=== PATIENT | male | born 1980 | race Caucasian/White ===

== ENCOUNTER 2019-08-30 01:42 | Emergency (ER) | payer OTHER ==
[2019-08-30 02:26] LABS: ABSOLUTE BASOPHILS # (AUTO) 0.1 10^3/uL (0.0-0.2); ABSOLUTE EOSINOPHILS # (AUTO) 0.1 10^3/uL (0.0-0.6); ABSOLUTE LYMPHOCYTES (AUTO) 1.8 10^3/uL (0.5-4.7); ABSOLUTE MONOCYTES (AUTO) 0.9 10^3/uL (0.1-1.4); ABSOLUTE NEUT (AUTO) 9.3 10^3/uL (1.7-8.2); BASOPHILS % (AUTO) 0.5 % (0-2); HEMATOCRIT 47.7 % (37.9-51.0); HEMOGLOBIN 16.5 g/dL (13.5-17.0); MEAN CORPUSCULAR HEMOGLOBIN 30.8 pg (27.0-33.4); MEAN CORPUSCULAR HGB CONC 34.7 g/dL (32.0-36.0); MEAN CORPUSCULAR VOLUME 89 fl (80-97); MONOCYTES % (AUTO) 7.2 % (3-13); PLATELET COUNT 237 10^3/uL (150-450); RED BLOOD COUNT 5.36 10^6/uL (4.35-5.55); SEGMENTED NEUTROPHILS % (AUTO) 76.3 % (42-78); TOTAL CELLS COUNTED % (AUTO) 100 %; WHITE BLOOD COUNT 12.2 10^3/uL (4.0-10.5)
[2019-08-30 02:34] LABS: APPEARANCE,URINE SLIGHTLY-CLOUDY; BILIRUBIN,URINE NEGATIVE (NEGATIVE); COLOR,URINE YELLOW; GLUCOSE, URINE NEGATIVE (NEGATIVE); KETONES,URINE TRACE mg/dL (NEGATIVE); LEUKOCYTE ESTERASE,URINE NEGATIVE (NEGATIVE); NITRITE,URINE NEGATIVE (NEGATIVE); PROTEIN,URINE 30 mg/dL (NEGATIVE); URINE SPECIFIC GRAVITY 1.028
[2019-08-30 02:39] LABS: ALBUMIN 4.5 g/dL (3.5-5.0); ALKALINE PHOSPHATASE 73 U/L (38-126); ANION GAP 10 (5-19); ASPARTATE AMINO TRANSFERASE 30 U/L (17-59); BILIRUBIN,DIRECT 0.2 mg/dL (0.0-0.4); BILIRUBIN,TOTAL 0.7 mg/dL (0.2-1.3); BLOOD UREA NITROGEN 17 mg/dL (7-20); CALCIUM 9.5 mg/dL (8.4-10.2); CARBON DIOXIDE 28 mmol/L (22-30); CHLORIDE 102 mmol/L (98-107); CREATINE KINASE 227 U/L (55-170); GLUCOSE 157 mg/dL (75-110); POTASSIUM 4.3 mmol/L (3.6-5.0); TOTAL PROTEIN 7.1 g/dL (6.3-8.2)
[2019-08-30 02:50] LABS: CREATINE KINASE MB 1.39 ng/mL (<4.55)
[2019-08-30 03:07] LABS: TROPONIN I < 0.012 ng/mL
[2019-08-30] MEDS ORDERED: NORMAL SALINE 1000 ML 1,000 ML IV ONE (06:26)
--- NOTE | 2019-08-30 06:28 | ER Document Report ---
ED Dizziness/Weakness - General Chief Complaint: Dizziness Stated Complaint: VOMITING, DIZZY Time Seen by Provider: 08/30/19 06:19 Mode of Arrival: Ambulatory Information source: Patient, Relative - HPI Patient complains to provider of: Dizziness - pt. states he woke up last night with dizziness and felt like the room was spinning around. He denies CP, SOB, buyt had some nausea - Related Data Allergies/Adverse Reactions: No Known Allergies Allergy (Unverified 08/30/19 02:00) Past Medical History - Social History Smoking Status: Current Every Day Smoker Family History: None Patient has suicidal ideation: No Patient has homicidal ideation: No - Past Medical History Cardiac Medical History: Reports: Hx Hypercholesterolemia, Hx Hypertension Review of Systems - Review of Systems Constitutional: No symptoms reported EENT: No symptoms reported Cardiovascular: No symptoms reported Respiratory: No symptoms reported Gastrointestinal: No symptoms reported Musculoskeletal: No symptoms reported Neurological/Psychological: See HPI - dizziness -: Yes All other systems reviewed and negative Physical Exam - Vital signs Vitals: Pulse Resp BP Pulse Ox 65 17 119/73 100 08/30/19 04:50 08/30/19 04:50 08/30/19 04:50 08/30/19 04:50 - General General appearance: Appears well In distress: None - HEENT Head: Normocephalic Conjunctiva: Normal Pupils: PERRL Tympanic membrane: Normal Pharynx: Normal Neck: Normal - Respiratory Respiratory status: No respiratory distress Breath sounds: Normal - Cardiovascular Rhythm: Regular Heart sounds: Normal auscultation - Abdominal Inspection: Normal Tenderness: Nontender - Back Back: Normal - Neurological Neuro grossly intact: Yes Cognition: Normal Orientation: AAOx4 Speech: Normal Cranial nerves: Normal Cerebellar coordination: Normal Motor strength normal: LUE, RUE, LLE, RLE Sensory: Normal Course - Re-evaluation Re-evalutation: 08/30/19 07:38 pt felt better after IVF -- denies dizziness/ vertigo when laying still. Will F/U with Pcp in 1-2 days. - Vital Signs Vital signs: Temp Pulse Resp BP Pulse Ox 97.8 F 79 15 112/79 98 08/30/19 06:48 08/30/19 06:48 08/30/19 06:48 08/30/19 06:48 08/30/19 06:48 - Laboratory Result Diagrams: 08/30/19 02:10 08/30/19 02:10 Laboratory results interpreted by me: 08/30/19 08/30/19 08/30/19 02:10 02:10 02:10 WBC 12.2 H Absolute Neuts (auto) 9.3 H Glucose 157 H Creatine Kinase 227 H Urine Protein 30 H Urine Ketones TRACE H Urine Urobilinogen 2.0 H - EKG Interpretation by Me EKG shows normal: Sinus rhythm Rate: Normal Rhythm: NSR - nsr without acute change Discharge - Discharge Clinical Impression: Dizziness, Vertigo Condition: Stable Disposition: HOME, SELF-CARE Instructions: Dizziness ([facility]), Antinausea Medication ([facility]), Meclizine ([facility]), Vertigo ([facility]) Additional Instructions: rest, take meds as prescribed, return if worse Prescriptions: Meclizine HCl [Antivert 25 mg Tablet] 25 mg PO TID PRN #21 tablet PRN Reason: Ondansetron HCl [Zofran 4 mg Tablet] 1 - 2 tab PO Q4H PRN #10 tablet PRN Reason: Referrals: VITO WOODY MD [ACTIVE STAFF] - Follow up as needed
--- NOTE | 2019-08-30 07:28 | EKG REPORT ---
SEVERITY:- NORMAL ECG - SINUS RHYTHM : Confirmed by: Ruddy Sanchez MD 30-Aug-2019 07:28:02
[2019-08-30] MEDS ORDERED: MECLIZINE HCL 25 MG TABLET PO ONE (07:47)
[2019-08-30] MEDS ORDERED: ONDANSETRON 4 MG TAB.RAPDIS PO ONE (07:47)
[2019-08-30 07:59] VITALS: BP 122/73
== END 2019-08-30 07:59 | disposition home or self-care (01) ==
LOC: ER 01:42
DX: R42 Dizziness and giddiness (principal); R11.10 Vomiting, unspecified; F17.200 Nicotine dependence, unspecified, uncomplicated; I10 Essential (primary) hypertension
CPT/HCPCS: 93005; 99284; 96360; 36415; 82553; 82550; 85025; 80053; 81001; 84484; 93010; S0119; J7030